=== PATIENT | male | born 1940 | race American Indian/Alaskan Native ===

== ENCOUNTER → 2020-02-01 | Outpatient (CLI) | payer BC ==
[~2020-02-01] MED LIST: COLLAGENASE OINTMENT 30 GM TUBE ONE; LIDOCAINE VISC 2% SOLN 15 ML UDC ONE; LIDOCAINE/PRILOCAINE 2.5-2.5% KIT ONE
== END ==
LOC: WCC 15:34
PROVIDERS: ATTEND Internal Medicine Infectious Disease
DX: S81.801A Unspecified open wound, right lower leg, initial encounter (principal); N18.6 End stage renal disease; N18.9 Chronic kidney disease, unspecified; S70.361A Insect bite (nonvenomous), right thigh, initial encounter; Z90.49 Acquired absence of other specified parts of digestive tract; Z86.79 Personal history of other diseases of the circulatory system

== ENCOUNTER → 2020-02-08 | Outpatient (CLI) | payer BC | LOC: WCC 14:24 | PROVIDERS: ATTEND Internal Medicine Infectious Disease | DX: S81.801A Unspecified open wound, right lower leg, initial encounter (principal); N18.6 End stage renal disease; N18.9 Chronic kidney disease, unspecified; S70.361A Insect bite (nonvenomous), right thigh, initial encounter; Z90.49 Acquired absence of other specified parts of digestive tract; Z86.79 Personal history of other diseases of the circulatory system ==

== ENCOUNTER → 2020-03-04 | Outpatient (CLI) | payer BC ==
[~2020-03-04] MED LIST changes: -LIDOCAINE/PRILOCAINE 2.5-2.5% KIT ONE
== END ==
LOC: WCC 13:40
PROVIDERS: ATTEND Internal Medicine Infectious Disease
DX: S81.801A Unspecified open wound, right lower leg, initial encounter (principal); S81.802A Unspecified open wound, left lower leg, initial encounter; N18.6 End stage renal disease; N18.9 Chronic kidney disease, unspecified; S70.361A Insect bite (nonvenomous), right thigh, initial encounter; Z86.79 Personal history of other diseases of the circulatory system; Z90.49 Acquired absence of other specified parts of digestive tract